=== PATIENT | male | born 1995 | race Caucasian/White ===

== ENCOUNTER 2017-05-17 22:52 | Emergency (ER) | payer BC ==
[2017-05-17 23:08] VITALS: BP 136/86
[2017-05-17] MEDS ORDERED: Sodium Chloride 0.9% 10 ML Syringe FLUSH PRN (23:39)
[2017-05-17] MEDS ORDERED: Sodium Chloride 0.9% 1,000 ML IV SCH (23:45)
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
== END 2017-05-18 01:49 | disposition home or self-care (01) ==
LOC: JD.ED 22:52
DX: F10.120 Alcohol abuse with intoxication, uncomplicated (principal); F32.9 Major depressive disorder, single episode, unspecified; S50.812A Abrasion of left forearm, initial encounter; F17.210 Nicotine dependence, cigarettes, uncomplicated; Y90.1 Blood alcohol level of 20-39 mg/100 ml; X58.XXXA Exposure to other specified factors, initial encounter
CPT/HCPCS: 36415; 80053; 80306; 85025; 96360; 99285; G0480; J7040; J7050

== ENCOUNTER 2019-12-24 16:01 | Observation (INO) | payer BC ==
[2019-12-24] MEDS ORDERED: HYDROmorphone 1 MG/ML Syringe IVPUSH ONE ×2 (16:06→20:08)
[2019-12-24] MEDS ORDERED: Metoclopramide 10 MG/2 ML SDV IVPUSH ONE (16:07)
[2019-12-24] MEDS ORDERED: HYDROmorphone 1 MG/ML Syringe ONE ×2 (16:09→22:21)
[2019-12-24] MEDS ORDERED: Metoclopramide 10 MG/2 ML SDV ONE (16:09)
[2019-12-24] MEDS ORDERED: Sodium Chloride 0.9% 1,000 ML IV SCH (16:15)
[2019-12-24] MEDS ORDERED: propofoL 100 ML ONE (16:20)
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
--- NOTE | 2019-12-24 16:58 | CR ---
Pelvis: Single crosstable lateral view was obtained of the hips. Study is less than optimal with this single view. No gross abnormality is appreciated. Impression: 1. No gross abnormality on crosstable lateral view of the hips. Recommend complete study when patient's condition permits. Diagnostic code #2 This report was dictated in MDT
[2019-12-24] MEDS ORDERED: Succinylcholine 200 MG/10 ML MDV ONE (17:00)
[2019-12-24] MEDS ORDERED: propofoL 100 ML IV SCH (17:00)
[2019-12-24] MEDS ORDERED: Etomidate 2 MG/ML 20 ML SDV IVPUSH ONE (17:00)
[2019-12-24] MEDS ORDERED: Iopamidol 755 Mg/ML 100 ML Bottle IVPUSH ONE (17:19)
[2019-12-24] MEDS: Lactated Ringers 1,000 ML IV SCH (17:44)
--- NOTE | 2019-12-24 17:59 | CT ---
CT cervical spine Technique: Multiple axial sections were obtained from above C1 inferiorly to the bottom of T3. Reconstructed sagittal and coronal images were obtained. Findings: Partially visualized endotracheal tube and nasogastric tube are noted. Vertebral body heights and disc spaces are maintained. Vertebral bodies and posterior arches are intact. No fracture is appreciated. No bony central or bony neural foraminal stenosis is seen. No abnormal subluxation is seen. Impression: 1. Slight scoliosis is seen which may be positional. Impression: 1. Findings as noted above. 2. Nothing acute is appreciated on CT study of the cervical spine. Diagnostic code #1 This report was dictated in MDT
--- NOTE | 2019-12-24 18:11 | CT ---
CT chest Technique: Multiple axial sections were obtained from above the lung apices inferiorly through the lung bases. Intravenous contrast was utilized. Comparison: No prior chest CT, previous chest x-ray of 03/01/19. Findings: Aorta shows no aneurysm. Mediastinum shows no discrete hematoma. Motion artifact is seen which is likely due to respiration. No pericardial thickening seen. No axillary adenopathy is identified. Lungs are clear with no acute parenchymal change. No pleural effusions or pneumothorax is appreciated. Nasogastric tube is within the stomach. Endotracheal tube within the trachea is noted which ends above the ria. Bone window settings were reviewed which shows no discrete osseous abnormality. Impression: 1. Nothing acute is appreciated on CT study of the chest. Detail slightly limited due to respiratory motion. 2. Satisfactory position of nasogastric tube and endotracheal tube. Diagnostic code #2 This report was dictated in MDT CT abdomen and pelvis Technique: Multiple axial sections were obtained from above the dome of the diaphragm inferiorly through the pelvis. Intravenous contrast was utilized. No oral contrast was utilized. Findings: Liver shows no discrete abnormality. Nasogastric tube is seen with tip is seen with tip lying in the stomach antrum. Kidneys show contrast enhancement. Delayed images were obtained which shows contrast excretion into both ureters and within the bladder. Pancreas shows no discrete abnormality. Aorta shows no aneurysm. Gallbladder shows no calcified gallstones. Aorta appears within normal limits. No retroperitoneal adenopathy or mesenteric abnormalities are seen. No pelvic mass or adenopathy is seen. No free fluid or inflammatory change is appreciated. No free fluid is seen. Bone window settings shows posterior dislocation of the left hip. No fracture is appreciated. Impression: 1. Tip of nasogastric tube within stomach antrum. 2. Posterior dislocation of the left hip. 3. Nothing acute is otherwise appreciated on CT study of the abdomen and pelvis. Diagnostic code #5 This report was dictated in MDT
[2019-12-24] MEDS ORDERED: Midazolam 1 MG/ML 2 ML SDV IVPUSH ONE (18:13)
[2019-12-24] MEDS ORDERED: Midazolam 1 MG/ML 5 ML SDV IVPUSH ONE (18:14)
--- NOTE | 2019-12-24 18:17 | CT ---
Head CT Technique: Multiple axial sections to the brain were obtained. Intravenous contrast was not utilized. Findings: Ventricles along with basal cisterns and sulci over the convexities are within normal limits for the patient's age. No abnormal parenchymal densities are seen. No evidence of intracranial hemorrhage. No midline shift or mass-effect is appreciated. Bone window settings were reviewed which shows no acute calvarial finding. Visualized paranasal sinuses show nothing acute. No acute calvarial finding is seen. Impression: 1. Nothing acute is appreciated on noncontrast head CT exam. Diagnostic code #1 This report was dictated in MDT
--- NOTE | 2019-12-24 18:23 | CT ---
CT lumbar spine Technique: Multiple axial sections were obtained through the lumbar spine. Reconstructed coronal and sagittal images were obtained. Findings: Vertebral body heights and disc spaces are maintained. Partially visualized dislocation of the left hip is seen posteriorly. No abnormal subluxation is seen. Posterior discs are preserved. Lucent line is noted within the transverse processes of L1 believed to be developmental. No discrete fracture or other abnormality is appreciated. Impression: 1. Posterior left hip dislocation partially seen. 2. Nothing acute is otherwise appreciated on CT study of the lumbar spine. Diagnostic code #3 This report was dictated in MDT
--- NOTE | 2019-12-24 18:24 | CT ---
CT thoracic spine Technique: Multiple axial sections through the thoracic spine were obtained. Comparison: No prior thoracic spine imaging is available. Findings: Vertebral body heights and disc spaces are maintained. Vertebral bodies and posterior arches are intact. No bony central or bony neural foraminal stenosis is seen. No abnormal subluxation is seen. Impression: 1. Nothing acute is appreciated on CT study of the thoracic spine. Diagnostic code #1 This report was dictated in MDT
[2019-12-24] MEDS ORDERED: Midazolam 1 MG/ML 5 ML SDV ONE (19:00)
--- NOTE | 2019-12-24 19:15 | CR ---
Bilateral femurs: AP and lateral views of both femurs were obtained. Comparison: Previous CT abdomen and pelvis exam performed earlier on the same day. Findings: Previous left hip dislocation has been reduced. Mild medial joint space narrowing is noted within the left knee. No fracture or other bony abnormality is appreciated. Impression: 1. Previous dislocation reduced. 2. Mild medial joint space narrowing. 3. No acute fracture is seen on bilateral femur study. Diagnostic code #2 Study was dictated in MDT
--- NOTE | 2019-12-24 19:19 | CR ---
Left tibia and fibula: 2 views left tibia and fibula were obtained. Comparison: No previous tibia or fibula exams available. No discrete fracture or other bony abnormality is appreciated. Impression: 1. No abnormality is appreciated on 2 view left tibia and fibula exam. Diagnostic code #1 Study was dictated in MDT
--- NOTE | 2019-12-24 19:19 | CT ---
CT pelvis Technique: Multiple axial sections through the pelvis were obtained. Study performed as a bone algorithm exam. Findings: Sacroiliac joints are normal. Right and left hips appear normal in alignment. No fracture or other abnormality is appreciated. Giron catheter is noted within the bladder. Contrast is noted within both distal ureters. Impression: 1. Nothing acute is seen on CT study of the pelvis. Diagnostic code #1 Study was dictated in MDT
--- NOTE | 2019-12-24 19:19 | CR ---
Right tibia and fibula: 2 views of the right tibia and fibula were obtained. Nondisplaced fracture is noted within the medial malleolus. Soft tissue swelling is seen. No additional fracture or other bony abnormality is appreciated. Impression: 1. Nondisplaced medial malleolar fracture. 2. Soft tissue swelling around the ankle. 3. Right tibia and fibula study is otherwise unremarkable. Diagnostic code #3 Study was dictated in MDT
[2019-12-24] MEDS ORDERED: Morphine 2 MG/ML SYRINGE IVPUSH PRN (20:21)
[2019-12-24] MEDS ORDERED: Lactated Ringers 1,000 ML IV SCH (20:30)
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
[2019-12-24] MEDS: oxyCODONE 5 MG Tab PO PRN (21:21)
[2019-12-24] MEDS: Acetaminophen 325 MG Tab PO SCH (21:49)
[2019-12-24] MEDS ORDERED: HYDROmorphone 1 MG/ML Syringe IVPUSH PRN (22:14)
[2019-12-24] MEDS: Ketorolac 15 MG/ML SDV IVPUSH SCH (22:30)
[2019-12-24] MEDS ORDERED: LORazepam 2 MG/ML SDV ONE (22:46)
[2019-12-24] MEDS: LORazepam 2 MG/ML SDV IVPUSH PRN (22:50)
[2019-12-25] MEDS: Ketorolac 15 MG/ML SDV IVPUSH SCH ×2 (04:33→11:02)
[2019-12-25] MEDS: Acetaminophen 325 MG Tab PO SCH ×2 (04:34→11:43)
[2019-12-25] MEDS: Lactated Ringers 1,000 ML IV SCH (06:50)
[2019-12-25] MEDS: oxyCODONE 5 MG Tab PO PRN (07:55)
--- NOTE | 2019-12-25 07:57 | CT ---
CT left hip Technique: Multiple axial sections through the left hip were obtained. Reconstructed coronal and sagittal images were obtained. Comparison: Prior CT abdomen and pelvis study performed earlier on same day (4:43 PM). Previous dislocation has been reduced. No fracture is appreciated or other bony abnormality is appreciated. Impression: 1. Previous dislocation has been reduced. 2. No acute osseous finding is appreciated on CT study of the left hip. Diagnostic code #1 Study was dictated in MDT MTDD
[2019-12-25] MEDS: LORazepam 2 MG/ML SDV IVPUSH PRN (09:00)
[2019-12-25] MEDS ORDERED: QUEtiapine 25 MG Tab PO PRN (11:30)
[2019-12-25] MEDS ORDERED: LORazepam 0.5 MG Tab PO PRN (11:30)
[2019-12-25] MEDS ORDERED: Sertraline 50 MG Tab PO SCH (11:30)
[2019-12-25] MEDS ORDERED: Albuterol 6.7 GM Inhaler INH PRN (11:30)
[2019-12-25] MEDS ORDERED: oxyCODONE 5 MG Tab PO PRN ×2 (11:31→11:32)
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
[2019-12-25 15:07] VITALS: BP 134/70; PULSE 95
--- NOTE | 2019-12-25 15:21 | CT ---
CT right ankle Technique: Multiple axial sections through the right ankle were obtained. Reconstructed coronal and sagittal images were reviewed. Comparison: No prior ankle exam is available. Findings: Slightly comminuted medial malleolus fracture is noted. Greatest facture displacement is about 3.8 mm. Lateral malleolus is intact. Posterior malleolus is intact. No additional bony abnormality is seen. Soft tissue swelling is noted. Impression: 1. Mildly comminuted and minimally displaced medial malleolus fracture. 2. Soft tissue swelling. 3. No additional abnormality is identified. Diagnostic code #3 This report was dictated in MDT
[2019-12-26] MEDS ORDERED: Montelukast 10 MG Tab PO SCH (09:00)
== END 2019-12-25 15:30 | disposition home or self-care (01) ==
LOC: JD.ED 16:01 → JD.MS 20:21
PROVIDERS: ADMIT Surgery; ATTEND Surgery
DX: S82.51XA Displaced fracture of medial malleolus of right tibia, initial encounter for closed fracture (principal); S73.015A Posterior dislocation of left hip, initial encounter; J45.909 Unspecified asthma, uncomplicated; F41.9 Anxiety disorder, unspecified; F32.9 Major depressive disorder, single episode, unspecified; R41.82 Altered mental status, unspecified; F17.210 Nicotine dependence, cigarettes, uncomplicated; Z79.899 Other long term (current) drug therapy; Z20.828 Contact with and (suspected) exposure to other viral communicable diseases; V86.99XA Unspecified occupant of other special all-terrain or other off-road motor vehicle injured in nontraffic accident, initial encounter
CPT/HCPCS: 31500; 36415; 43752; 51702; 70450; 71260; 72125; 72128; 72131; 72170; 72192; 73552; 73590; 73700; 74177; 80053; 80306; 80307; 81001; 82150; 82550; 85007; 85027; 85610; 85730; 86850; 86900; 86901; 87635; 93005; 94760; 96361; 96374; 96375; 96376; 97161; 97165; 97530; 99285; A9270; G0378; J0330; J1170; J1885; J2060; J2250; J2270; J2704; J2765; J3490; J7030; J7120; Q9967; 93010; U0002

== ENCOUNTER 2020-01-03 06:23 | Day surgery (SDC) | payer BC, OTHER ==
[~2020-01-03 06:23] MED LIST: Lactated Ringers 1,000 ML IV SCH; Lidocaine 1%/Sod Bicarbonate in NS 8.4% 1 ML Syringe IDERM PRN; Sodium Chloride 0.9% 10 ML Syringe FLUSH PRN
[2020-01-03] MEDS ORDERED: fentaNYL 100 MCG/2 ML SDV ONE (06:51)
[2020-01-03] MEDS ORDERED: Midazolam 1 MG/ML 2 ML SDV ONE (06:51)
[2020-01-03] MEDS ORDERED: Propofol 200 MG/20 ML SDV ONE ×2 (06:51→09:35)
[2020-01-03] MEDS ORDERED: Dexamethasone 4 MG/ML 5 ML MDV ONE (06:59)
[2020-01-03] MEDS ORDERED: Lidocaine 1% 4 ML ONE ×2 (06:59→08:51)
[2020-01-03] MEDS ORDERED: Ropivacaine 0.5% 5 MG/ML 30 ML SDV ONE (07:03)
--- NOTE | 2020-01-03 08:19 | PCM.PREANE ---
Preanesthetic Assessment - Procedure Proposed Procedure: Rt medial malleolus ORIF - Anesthesia/Transfusion/Family Hx Anesthesia History: Prior Anesthesia Without Reaction Transfusion History: No Prior Transfusion(s) Intubation History: Unknown - Review of Systems General: No Symptoms Pulmonary: No Symptoms Cardiovascular: No Symptoms Gastrointestinal: No Symptoms Neurological: No Symptoms Other: Reports: None - Physical Assessment NPO Status Date: 01/02/20 NPO Status Time: 22:00 Vital Signs: Last Vital Signs Temp 97.1 F 01/03/20 06:48 Pulse 71 01/03/20 06:48 Resp 16 01/03/20 06:48 BP 117/68 01/03/20 06:48 Pulse Ox 100 01/03/20 06:48 Height: 1.78 m Weight: 65.771 kg ASA Class: 2 (smoker, asthma) Mental Status: Alert & Oriented x3 Airway Class: Mallampati = 1 Dentition: Reports: Normal Dentition, [place](s) Thyro-Mental Finger Breadths: 3 Mouth Opening Finger Breadths: 3 ROM/Head Extension: Full Lungs: Clear to Auscultation, Normal Respiratory Effort Cardiovascular: Regular Rate, Regular Rhythm - Allergies Allergies/Adverse Reactions: Allergies Allergy/AdvReac Type Severity Reaction Status Date / Time No Known Allergies Allergy Verified 01/02/20 13:42 - Acknowledgements Anesthesia Type Planned: General Anesthesia, Regional Block (saphenous + popliteal for postoperative pain control), MAC Pt an Appropriate Candidate for the Planned Anesthesia: Yes Alternatives and Risks of Anesthesia Discussed w Pt/Guardian: Yes Pt/Guardian Understands and Agrees with Anesthesia Plan: Yes PreAnesthesia Questionnaire - Past Health History Medical/Surgical History: Denies Medical/Surgical History HEENT History: Reports: None Cardiovascular History: Reports: None Respiratory History: Reports: Asthma Gastrointestinal History: Reports: None Genitourinary History: Reports: None BIOTECHNICIAN History: Reports: None Musculoskeletal History: Reports: None Neurological History: Reports: None Psychiatric History: Reports: Anxiety, Depression Endocrine/Metabolic History: Reports: None Hematologic History: Reports: None Immunologic History: Reports: None Oncologic (Cancer) History: Reports: None Dermatologic History: Reports: None - Infectious Disease History Infectious Disease History: Reports: None - Past Surgical History Head Surgeries/Procedures: Reports: None Other HEENT Surgeries/Procedures: Lump on his throat that was looked at by an ENT. Nothing to be concerned about at this time. Cardiovascular Surgical History: Reports: None Respiratory Surgical History: Reports: None GI Surgical History: Reports: None Female Surgical History: Reports: None Male Surgical History: Reports: None Endocrine Surgical History: Reports: None Neurological Surgical History: Reports: None Musculoskeletal Surgical History: Reports: Other (See Below) Other Musculoskeletal Surgeries/Procedures:: Ripped ACL in left knee Oncologic Surgical History: Reports: None Dermatological Surgical History: Reports: None - SUBSTANCE USE Smoking Status *Q: Current Every Day Smoker Recreational Drug Use History: Yes Recreational Drug Type: Reports: Methamphetamine Recreational Drug Last Use: 12/31/2019 - HOME MEDS Home Medications: Home Meds LORazepam [Lorazepam] 0.5 mg PO BID PRN 12/24/19 [History] Sertraline [Zoloft] 50 mg PO DAILY 12/24/19 [History] Acetaminophen [Tylenol] 650 mg PO Q4H PRN 01/02/20 [History] Aspirin [Aspirin EC] 325 mg PO BID #84 tablet. 01/03/20 [Rx] oxyCODONE 1 tab PO ASDIRECTED 01/03/20 [History] oxyCODONE 5 - 10 mg PO Q6H PRN #30 tab 01/03/20 [Rx] - CURRENT (IN HOUSE) MEDS Current Meds: Current Medications Lactated Ringer's (Ringers, Lactated) 1,000 mls @ 125 mls/hr IV ASDIRECTED [facility] Lidocaine/Sodium Bicarbonate (Buffered Lidocaine 1% In Ns 8.4%) 0.25 ml IDERM ONETIME PRN PRN Reason: Prior to IV Start Sodium Chloride (Saline Flush) 10 ml FLUSH ASDIRECTED PRN PRN Reason: Keep Vein Open Discontinued Medications Dexamethasone (Dexamethasone) Confirm Administered Dose 20 mg .ROUTE .STK-MED ONE Stop: 01/03/20 07:00 Fentanyl (Sublimaze) Confirm Administered Dose 100 mcg .ROUTE .STK-MED ONE Stop: 01/03/20 06:52 Lidocaine HCl (Xylocaine-Mpf 1%) Confirm Administered Dose 4 mls @ as directed .ROUTE .STK-MED ONE Stop: 01/03/20 07:00 Midazolam HCl (Versed 1 Mg/Ml) Confirm Administered Dose 6 mg .ROUTE .STK-MED ONE Stop: 01/03/20 06:52 Propofol (Diprivan 20 Ml) Confirm Administered Dose 400 mg .ROUTE .STK-MED ONE Stop: 01/03/20 06:52 Ropivacaine (Naropin 0.5%) Confirm Administered Dose 30 ml .ROUTE .STK-MED ONE Stop: 01/03/20 07:04
[2020-01-03] MEDS ORDERED: Bupivacaine 0.25% 10 ML SDV ONE (08:29)
--- NOTE | 2020-01-03 08:36 | PCM.PRNOTE ---
- Free Text/Narrative Note: Postoperative regional pain control requested by surgeon. Pre-op Dx: Right medial malleolus fracture Surgery :Right medial malleolus ORIF Anesthesia Procedure: Right Popliteal block and Right saphenous block below the knee with U/S guidance Requesting physician: Dr. Venkatesh Gray Risks and benefits discussed with the patient preoperatively including infection, bleeding, incomplete or failed block, possible nerve damage, local anesthetic toxicity. Chart reviewed, VS stable. Permit signed. Patient in PACU holding area, stable , alert and awake. Time out performed at 07:34. Oxygen 2L via NC. Midazolam IV 2 mg given. Patient supine with right leg supported on folded blankets. The medial surface of the right leg BELOW the knee was prepped with Chloraprep and allowed to dry. Local infiltration with 1% Lidocaine 1 cc. Under ultrasound guidance right great saphenous vein was identified and using a 2" Stimuplex needle of Ropivacaine 0.5% diluted with 5 mls of Normal Saline with 1:200k of epinephrine (total of 10 mls) and 2 mg of Dexamethasone were injected incrementally around it in a crescent shape fashion maintaining negative aspiration. Then the patient has been positioned in left lateral decubitus with right leg supported by folded blankets. Right lateral thigh area above the knee was prepped with Chloraprep x 1 and allowed to dry. Another 2 mg of Midazolam IV given. Under aseptic technique, the Right common peroneal and Right tibial nerves were identified under ultrasound prior to needle insertion. Local infiltration with 1% Lidocaine. 4" Stimuplex needle #22 G was inserted under US guidance. Under direct visualization of needle tip the injection of 0.5% Ropivacaine with 1:200k epinephrine and 4 mg of Dexamethasone, total of 25 mls in divided doses, maintaining negative aspiration was completed without problems. No local anesthetic toxicity was noted. Patient is awake, stable and tolerated the procedure well. Time out: 07:34 Start: 07:38 End of procedure: 0801 Please see attached U/S images
[2020-01-03] MEDS ORDERED: ceFAZolin 1 GM Vial ONE (08:51)
[2020-01-03] MEDS ORDERED: Lactated Ringers 1,000 ML ONE (08:54)
[2020-01-03] MEDS ORDERED: Ondansetron 4 MG/2 ML SDV ONE (09:19)
[2020-01-03] MEDS ORDERED: fentaNYL 100 MCG/2 ML SDV IVPUSH PRN (09:54)
[2020-01-03] MEDS ORDERED: HYDROmorphone 0.5 MG/0.5 ML Syringe IVPUSH PRN (09:54)
[2020-01-03 10:11] VITALS: BP 123/71; PULSE 107
--- NOTE | 2020-01-03 10:17 | PCM48HPAN ---
Post Anesthesia Note - EVALUATION WITHIN 48HRS OF ANESTHETIC Vital Signs in Normal Range: Yes Patient Participated in Evaluation: Yes Respiratory Function Stable: Yes Airway Patent: Yes Cardiovascular Function Stable: Yes Hydration Status Stable: Yes Pain Control Satisfactory: Yes Nausea and Vomiting Control Satisfactory: Yes Mental Status Recovered: Yes Vital Signs: Last Vital Signs Temp 97.8 F 01/03/20 09:59 Pulse 107 H 01/03/20 09:59 Resp 18 01/03/20 09:59 BP 123/71 01/03/20 09:59 Pulse Ox 98 01/03/20 09:59
--- NOTE | 2020-01-03 11:04 | CR ---
Right ankle: 5 fluoroscopic spot views of the right ankle were obtained. Comparison: Prior right ankle and tibia/fibula study of 12/24/19. Study shows placement of 2 cannulated screws across previous medial malleolus fracture. Ankle mortise appears symmetric. Fluoroscopy time is given as 27.8 seconds. Impression: 1. Procedural study as noted above. Diagnostic code #2 This report was dictated in MDT
--- NOTE | 2020-01-09 14:28 | PCM.OPNOTE ---
- General Post-Op/Procedure Note Date of Surgery/Procedure: 01/03/20 Operative Procedure(s): open reduction internal fixation right medial malleolus fracture Pre Op Diagnosis: right medial malleolus fracture Post-Op Diagnosis: Same Anesthesia Technique: Local, MAC, Regional Block Primary Surgeon: Venkatesh Natarajan Anesthesia Provider: Junior Ta Manager Of Internal Audit: Mirela HaydenL in mLs: 10 Complications: None Condition: Good
--- NOTE | 2020-01-09 15:05 | OR ---
DATE OF OPERATION: 01/03/2020 SURGEON: Venkatesh Natarajan MD OPERATION PERFORMED: Open reduction and internal fixation of right medial malleolus fracture. PREOPERATIVE DIAGNOSIS: Right medial malleolus fracture. POSTOPERATIVE DIAGNOSIS: Right medial malleolus fracture. ANESTHESIA: Local MAC with regional block. ANESTHESIA PROVIDER: Junior Ta. POMOLOGIST: Mirela Hayden PA-C ESTIMATED BLOOD LOSS: 10 mL. COMPLICATIONS: None. CONDITION: Stable. DESCRIPTION OF PROCEDURE: The patient was identified in the preoperative holding area. Proper site was marked, identified by the surgeon. The patient was taken back to the operative theater, where after adequate anesthesia, the patient had a nonsterile tourniquet applied to the right lower extremity. Right lower extremity was then sterilely prepped and draped in the usual sterile fashion. OR time-out was performed. The patient received 2 g of IV Ancef. Right lower extremity was exsanguinated. Tourniquet was insufflated to 250 mmHg. Standard medial approach was made. This was taken down to the fracture site. Fracture site was identified and curetted and rongeured of all fracture hematoma. At this time, there was a comminuted portion of the articular surface that came out of the wound while we were irrigating, roughly 1 cm x 5 mm, that had no bony attachment. At this time, a ownwi-oc-sdkcg reduction clamp and then 2 K-wires were placed under direct C-arm fluoroscopy reducing the medial malleolar fragment with good caodaism of the medial clear space and no signs of step- off either under direct visualization or on C-arm fluoroscopy. Two 4.0 cannulated Jerardo screws were then placed and it was found to have adequate purchase. The guide pins were then pulled. Final C-arm fluoroscopy showed it to be in near anatomic alignment. Stress view showed no widening of the medial clear space or syndesmosis. Adequate saline was then irrigated through the wound, 2-0 Vicryl was used subcutaneously, eboni were used for closure of the skin. The patient tolerated the procedure well and was sent to the PACU in stable condition. MMODAL /[id number]
== END 2020-01-03 11:00 | disposition home or self-care (01) ==
LOC: JD.SDS 06:23
PROVIDERS: ATTEND Orthopaedic Surgery
DX: S82.51XA Displaced fracture of medial malleolus of right tibia, initial encounter for closed fracture (principal); S73.015A Posterior dislocation of left hip, initial encounter; J45.909 Unspecified asthma, uncomplicated; F17.210 Nicotine dependence, cigarettes, uncomplicated; F32.9 Major depressive disorder, single episode, unspecified; F41.9 Anxiety disorder, unspecified; Z11.59 Encounter for screening for other viral diseases; Z79.899 Other long term (current) drug therapy; V86.99XA Unspecified occupant of other special all-terrain or other off-road motor vehicle injured in nontraffic accident, initial encounter
CPT/HCPCS: 27766; 76000; 87635; C1713; C1769; J0690; J1100; J2001; J2250; J2405; J2704; J2795; J3490; J7120; 01480; 64450; J3010; U0002